=== PATIENT | female | born 1985 | race American Indian/Alaskan Native ===

== ENCOUNTER 2019-01-05 07:17 | Emergency (ER) | payer OTHER ==
--- NOTE | 2019-01-05 08:41 | Emergency Department Report ---
ED Fall HPI - General Chief Complaint: Extremity Injury, Lower Stated Complaint: RT KNEE INJURY Time Seen by Provider: 01/05/19 07:54 Source: patient Mode of arrival: Ambulatory - History of Present Illness Initial Comments: Patient is a 33-year-old healthy looking female who presents to ED complaining of right knee pain status post fall off of a snowboard yesterday. Patient s tates she was on the board and she accidentally fell and hit her right knee. Patient says since yesterday she's been expresses some pain and swelling to the right knee. Patient states she has pain when she applies pressure. She states that she is able to ambulate but the pain is worsened with extending up the knee. She denies loc after incident and was able to get up after fall. She denies, headache, chestpain, inability to walk MD Complaint: fall - Related Data Previous Rx's Medication Instructions Recorded Last Taken Type Ibuprofen [Motrin 800 MG tab] 800 mg PO TID #20 tablet 01/05/19 Unknown Rx Allergies Allergy/AdvReac Type Severity Reaction Status Date / Time No Known Allergies Allergy Unverified 01/05/19 07:23 ED Review of Systems ROS: Stated complaint: RT KNEE INJURY Other details as noted in HPI Comment: All other systems reviewed and negative ED Past Medical Hx - Past Medical History Previous Medical History?: No - Surgical History Past Surgical History?: Yes Additional Surgical History: tubal ligation - Social History Smoking Status: Current Every Day Smoker Substance Use Type: None - Medications Home Medications: Home Medications Medication Instructions Recorded Confirmed Last Taken Type Ibuprofen [Motrin 800 MG tab] 800 mg PO TID #20 tablet 01/05/19 Unknown Rx ED Physical Exam - General Limitations: No Limitations General appearance: alert, in no apparent distress - Head Head exam: Present: atraumatic, normocephalic - Eye Eye exam: Present: normal appearance - ENT ENT exam: Present: mucous membranes moist - Neck Neck exam: Present: normal inspection - Respiratory Respiratory exam: Present: normal lung sounds bilaterally. Absent: respiratory distress - Cardiovascular Cardiovascular Exam: Present: regular rate, normal rhythm. Absent: systolic murmur, diastolic murmur, rubs, gallop - GI/Abdominal GI/Abdominal exam: Present: soft, normal bowel sounds - Extremities Exam Extremities exam: Present: normal inspection, full ROM, tenderness (palpation of the medial aspect of the right knee), other (negative varus and Valgus sign). Absent: joint swelling - Back Exam Back exam: Present: normal inspection - Neurological Exam Neurological exam: Present: alert, oriented X3 - Psychiatric Psychiatric exam: Present: normal affect, normal mood - Skin Skin exam: Present: warm, dry, intact, normal color. Absent: rash ED Course Vital Signs 01/05/19 01/05/19 07:24 09:21 Temperature 98.1 F 98.4 F Pulse Rate 95 H 82 Respiratory 16 18 Rate Blood Pressure 126/73 Blood Pressure 130/62 [Right] O2 Sat by Pulse 100 96 Oximetry ED Medical Decision Making - Radiology Data Radiology results: report reviewed, image reviewed FINDINGS: There is no acute bony fracture, or joint subluxation or dislocation seen. No focal bone erosion or sclerosis is seen. No evidence for inflammatory or degenerative arthritis is seen. There is a suprapatellar soft tissue density reminiscent of a gross joint effusion seen. No radiodense soft tissue abnormality or foreign body is seen. IMPRESSION: 1. No acute bony fracture, or joint subluxation or dislocation seen. 2. Suggestion of a moderate to large joint effusion with distention of the suprapatellar bursa. Clinical correlation is advised. 3. No radiodense soft tissue abnormality or foreign body seen. This document is electronically signed by Nuno Vail MD., Jan 05 2019 08:57:15 AM ET Transcribed By: SOCORRO Dictated By: NUNO VAIL Electronically Authenticated By: NUNO VAIL Signed Date/Time: 01/05/19 0859 - Medical Decision Making 33-year-old female presents to ED with right knee pain from injury from fall ED course: Patient received Motrin in ED. X-ray shows no acute dislocation or fracture, shows mild joint effusion Vital signs are normal patient is in no acute distress Discussed with patient follow-up with primary care physician. Discussed the patient and take medications as prescribed. Patient has no neurological deficit. Patient is alert and oriented 3 and understands all instructions given. Critical care attestation.: If time is entered above; I have spent that time in minutes in the direct care of this critically ill patient, excluding procedure time. ED Disposition Clinical Impression: Knee pain, right Disposition: DC-01 TO HOME OR SELFCARE Is pt being admited?: No Does the pt Need Aspirin: No Condition: Stable Instructions: Knee Pain (ED), Arthralgia (ED), Knee Exercises (GEN) Additional Instructions: Make sure to follow up with the primary care physician as discussed. Take all your medications as you've been prescribed. If you have any worsening symptoms or develop new symptoms please return to ED immediately. Prescriptions: Ibuprofen [Motrin 800 MG tab] 800 mg PO TID #20 tablet Referrals: [facility] [Other] - 3-5 Days JANETH LOVING MD [Staff Physician] - 3-5 Days Forms: Work/School Release Form Time of Disposition: 09:06
[2019-01-05] MEDS ORDERED: IBUPROFEN PO ONE (08:42)
--- NOTE | 2019-01-05 08:59 | XRay Report ---
EXAM: XR KNEE 3V RT HISTORY: pain TECHNIQUE: 3 views COMPARISON: None available. FINDINGS: There is no acute bony fracture, or joint subluxation or dislocation seen. No focal bone erosion or sclerosis is seen. No evidence for inflammatory or degenerative arthritis is seen. There is a suprapatellar soft tissue density reminiscent of a gross joint effusion seen. No radiodens e soft tissue abnormality or foreign body is seen. IMPRESSION: 1. No acute bony fracture, or joint subluxation or dislocation seen. 2. Suggestion of a moderate to large joint effusion with distention of the suprapatellar bursa. Clin ical correlation is advised. 3. No radiodense soft tissue abnormality or foreign body seen. This document is electronically signed by Kena Montemayor MD., Jan 05 2019 08:57:15 AM ET
[2019-01-05 09:22] VITALS: BP 130/62
== END 2019-01-05 09:21 | disposition home or self-care (01) ==
LOC: ED 07:17
DX: M25.561 Pain in right knee (principal); F17.200 Nicotine dependence, unspecified, uncomplicated; Z98.51 Tubal ligation status
CPT/HCPCS: 99283

== ENCOUNTER 2019-03-27 10:49 | Emergency (ER) | payer SELFPAY ==
[2019-03-27] MEDS ORDERED: DECADRON IV STA (10:57)
[2019-03-27] MEDS ORDERED: BENADRYL IV STA (10:57)
[2019-03-27] MEDS ORDERED: PROVENTIL IH STA (10:57)
[2019-03-27] MEDS ORDERED: PROVENTIL IH ONE (10:59)
--- NOTE | 2019-03-27 12:43 | XRay Report ---
CHEST 2 VIEWS INDICATION / CLINICAL INFORMATION: Difficulty breathing. COMPARISON: None available. FINDINGS: SUPPORT DEVICES: None. HEART / MEDIASTINUM: No significant abnormality. LUNGS / PLEURA: No significant pulmonary or pleural abnormality. .No pneumothorax. ADDITIONAL FINDINGS: No significant additional findings. IMPRESSION: 1. No acute findings. Signer Name: Scott Potter MD Signed: 03/27/2019 12:39 PM Workstation Name: [id number]
--- NOTE | 2019-03-27 13:42 | Emergency Department Report ---
ED Asthma HPI - General Chief Complaint: Adult Asthma Stated Complaint: ASTHMA ATTACK Time Seen by Provider: 03/27/19 10:56 Source: patient Mode of arrival: Ambulatory Limitations: No Limitations - History of Present Illness MD Complaint: "asthma attack" -: Gradual Severity: mild Associated Symptoms: none Treatments Prior to Arrival: inhaled bronchodilator - Related Data Previous Rx's Medication Instructions Recorded Last Taken Type Ibuprofen [Motrin 800 MG tab] 800 mg PO TID #20 tablet 01/05/19 Unknown Rx ALBUTEROL Inhaler (OR & NICU) 1 puff IH Q4-6H PRN #1 inha 03/27/19 Unknown Rx [ProAir HFA Inhaler] Montelukast [Singulair] 10 mg PO QPM #14 tablet 03/27/19 Unknown Rx predniSONE [Deltasone] 50 mg PO QDAY #5 tab 03/27/19 Unknown Rx Allergies Allergy/AdvReac Type Severity Reaction Status Date / Time No Known Allergies Allergy Verified 03/27/19 10:51 ED Review of Systems ROS: Stated complaint: ASTHMA ATTACK Other details as noted in HPI Comment: All other systems reviewed and negative ED Past Medical Hx - Past Medical History Hx Asthma: Yes - Surgical History Past Surgical History?: Yes Additional Surgical History: tubal ligation - Social History Smoking Status: Current Every Day Smoker Substance Use Type: None - Medications Home Medications: Home Medications Medication Instructions Recorded Confirmed Last Taken Type Ibuprofen [Motrin 800 MG tab] 800 mg PO TID #20 tablet 01/05/19 Unknown Rx ALBUTEROL Inhaler (OR & NICU) 1 puff IH Q4-6H PRN #1 inha 03/27/19 Unknown Rx [ProAir HFA Inhaler] Montelukast [Singulair] 10 mg PO QPM #14 tablet 03/27/19 Unknown Rx predniSONE [Deltasone] 50 mg PO QDAY #5 tab 03/27/19 Unknown Rx ED Physical Exam - General Limitations: No Limitations General appearance: alert, in distress, other - Head Head exam: Present: atraumatic, normocephalic - Eye Eye exam: Present: normal appearance - ENT ENT exam: Present: mucous membranes moist - Neck Neck exam: Present: normal inspection - Respiratory Respiratory exam: Present: normal lung sounds bilaterally, wheezes. Absent: respiratory distress - Cardiovascular Cardiovascular Exam: Present: regular rate, normal rhythm. Absent: systolic murmur, diastolic murmur, rubs, gallop - GI/Abdominal GI/Abdominal exam: Present: soft, normal bowel sounds - Extremities Exam Extremities exam: Present: normal inspection - Back Exam Back exam: Present: normal inspection - Neurological Exam Neurological exam: Present: alert, oriented X3 - Psychiatric Psychiatric exam: Present: normal affect, normal mood - Skin Skin exam: Present: warm, dry, intact, normal color. Absent: rash ED Course Vital Signs 03/27/19 11:41 Respiratory 18 Rate O2 Sat by Pulse 99 Oximetry ED Medical Decision Making - Medical Decision Making 33-year-old female reports for asthma flareup normal chest x-ray treated with sterilize and albuterol and also Benadryl reports a complete resolution of all wheezing and dyspnea. There is no further complaints or concerns. No cough, fever, chills, sweats on and wants 64D discharged home. Critical care attestation.: If time is entered above; I have spent that time in minutes in the direct care of this critically ill patient, excluding procedure time. ED Disposition Clinical Impression: Asthma Disposition: DC-01 TO HOME OR SELFCARE Is pt being admited?: No Does the pt Need Aspirin: No Condition: Stable Instructions: Asthma (ED) Prescriptions: predniSONE [Deltasone] 50 mg PO QDAY #5 tab ALBUTEROL Inhaler (OR & NICU) [ProAir HFA Inhaler] 1 puff IH Q4-6H PRN #1 inha PRN Reason: Cough Montelukast [Singulair] 10 mg PO QPM #14 tablet Referrals: ELSY TORRES MD [Primary Care Provider] - 3-5 Days
[2019-03-27 14:08] VITALS: BP 137/82
== END 2019-03-27 13:47 | disposition home or self-care (01) ==
LOC: ED 10:49
DX: J45.909 Unspecified asthma, uncomplicated (principal); F17.200 Nicotine dependence, unspecified, uncomplicated; Z98.51 Tubal ligation status; Z79.899 Other long term (current) drug therapy
CPT/HCPCS: 71046; 94644; 96374; 96375; 99283; J1100; J1200